=== PATIENT | female | born 1960 | race African-American/Black ===

== ENCOUNTER 2024-12-26 15:43 | Emergency (ER) | payer SELFPAY ==
[2024-12-26 15:47] VITALS: BP 152/77
[2024-12-26 18:00] VITALS: BP 148/65
--- NOTE | 2024-12-26 18:34 | ED.GENMED ---
History of Present Illness
General
Chief Complaint: Crisis Evaluation
Source: patient
Exam Limitations: none
Time Seen by Provider: 12/26/24 17:31
Nursing documentation reviewed up to this point in time: agreed with
History of Present Illness
History of Present Illness:
64 y/o F with schizophrenia
homelessness
here after police found her wandering in [place]
she is known to [facility] she says
she feels safe
she has tried to be placed in jail before but doesn' tprefer it
she has no complaitns
she wanted to sleep and eat
no hallucinations here
Past History
Past History
ED Past Medical History: Psychiatric
Social History
Tobacco: Non-smoker
Review of Systems
Review of Systems
Allergies reviewed?: Yes
All Other Systems: Not applicable
Phy Exam
Physical Exam
Physical Exam:
GENERAL: Alert , in no apparent distress, sleeping, easily aroused
EYE: pupils equal and reactive
NECK: Supple
ENT: o/p clr, mmm. edentureless
CARDIAC: Regular rate and rhythm .
LUNGS: Clear breath sounds bilaterally, no acute respiratory distress, no wheezes/rales/rhonchi
ABDOMEN: Soft, without focal tenderness, no r/g, no cvat, normal bowel sounds
NEUROLOGICAL: Alert and oriented, no focal neuro deficits; no hallucinations or internal stimuli; n
SKIN: Warm and dry, skin intact.
MUSCULOSKELETAL: No edema, well perfused. neg gladys's sign
PSYCH: Normal and appropriate interaction. no thought self hamr
has intact converstaion here
oriented
Course
Orders/Labs/Results
Orders:
Orders
12/26/24 17:39
Crisis Consult Urgent
Reason for Consult: change mental status
Vital Signs
Initial and Last Documented VS:
Initial Vital Signs
Temp Pulse Resp BP Pulse Ox
36.8 C 99 20 152/77 97
12/26/24 15:47 12/26/24 15:47 12/26/24 15:47 12/26/24 15:47 12/26/24 15:47
Last Documented Vital Signs
Temp Pulse Resp BP Pulse Ox
36.8 C 84 20 148/65 98
12/26/24 15:47 12/26/24 18:00 12/26/24 18:00 12/26/24 18:00 12/26/24 18:00
MDM/Problems Addressed
Differential Diagnosis Includes:
psychiatric crisis, psychosis, medical screening, homelessness
MDM/Problems Addressed:
64 y/o F with h/o schizophrenia
found wandering in [place] by police
pt seemed to be hallucinating so she was brought here
she is from [place], says that she was given train ticket and rode out to this area this morning
she is has no complaints
she has been to shelters in the city but chooses to be on the street and does not wish to pursue jail placement
she is oriented, awake and not hallucinating here
on exam she has dishelveled appearacne, but no signs trauma, appears hydrated, ate while being here, slept
d/w ed attending
crisis evaluated, they agree she is not acutely psychotic at this time
d/c
*Critical Care Note
Total Time (30-74mins, 75-104mins- exclusive of procedures): Not Applicable
ED Attending Note
-
Portions of this chart may have been created with voice recognition software.� Occasional wrong word or��sound alike� substitutions may have occurred due to the inherent limitations of voice recognition software.
Discharge Plan
Departure
Patient Disposition: Home (Routine Discharge)
Date of Disposition: 12/26/24
Time of Disposition: 20:15
Patient with high blood pressure during this ER visit?: No
Covid-19: Not Applicable
Discharge Problem:
Homelessness, Encounter for medical screening examination
Referrals:
NONE,* [Family Provider] -
Interventions
Interventions:
*Risk Screen - Suicide Last Done: 12/26/24 15:47
*General Assessment Last Done: 12/26/24 18:00
*Neglect/Abuse Screening Last Done: 12/26/24 18:00
*ED COVID-19 Vaccine History Last Done: 12/26/24 18:00
*Nursing Disposition Last Done: 12/26/24 21:30
ED-Psychological Assessment Last Done: 12/26/24 18:00
Discharge Date and Time
Discharge Date/Time: 12/26/24 21:33
Print Language: CHINESE
== END 2024-12-26 21:33 | disposition home or self-care (01) ==
LOC: EMR 15:43
PROVIDERS: EMERGENCY PHYSICIAN Student in an Organized Health Care Education/Training Program
DX: Z00.8 Encounter for other general examination (principal); F20.9 Schizophrenia, unspecified; Z59.00 Homelessness unspecified
CPT/HCPCS: 99283